=== PATIENT | male | born 1950 | race Caucasian/White ===

== ENCOUNTER 2019-04-17 20:21 | Inpatient (IN) ==
[2019-04-17] MEDS ORDERED: ONDANSETRON 4 MG/2 ML VIAL ONE (20:31)
[2019-04-17] MEDS ORDERED: NITROGLYCERIN 2% OINT 1 INCH/GM PACK TOP ONE (20:31)
[2019-04-17] MEDS ORDERED: MORPHINE 4 MG/1 ML VIAL ONE (20:32)
[2019-04-17] MEDS ORDERED: ASPIRIN 325 MG TABLET ONE (20:32)
[2019-04-17] MEDS ORDERED: ENOXAPARIN 30 MG/0.3 ML SYRINGE IV STA (20:33)
[2019-04-17] MEDS ORDERED: MORPHINE 4 MG/1 ML VIAL IV STA (20:33)
[2019-04-17] MEDS ORDERED: ONDANSETRON 4 MG/2 ML VIAL IV STA (20:33)
[2019-04-17] MEDS ORDERED: ASPIRIN 325 MG TABLET PO STA (20:33)
[2019-04-17] MEDS ORDERED: ENOXAPARIN 100 MG/ML SYRINGE SUBCUT STA (20:39)
[2019-04-17] MEDS ORDERED: ENOXAPARIN 80 MG/0.8 ML SYRINGE SUBCUT ONE (20:40)
[2019-04-17] MEDS ORDERED: methylPREDNISolone SOD SUC 125 MG/2 ML VIAL IV STA (20:41)
[2019-04-17] MEDS ORDERED: diphenhydrAMINE 50 MG/1 ML VIAL IV STA (20:41)
[2019-04-17] MEDS ORDERED: FAMOTIDINE 20 MG/2 ML VIAL IV STA (20:41)
[2019-04-17 20:59] LABS: Basophils # 0.1 10*3/uL (0.0-0.2); Basophils % 0.6 % (0.0-0.8); Eosinophils # 0.3 10*3/uL (0.0-0.87); Eosinophils % 2.9 % (0.00-10.9); Hematocrit 39.6 VOL% (42.0-52.0); Hemoglobin 13.6 GM/DL (14.0-18.0); Immature Granulocytes % 0.3 %; Immature Granulocytes Absolute 0.03 #; Lymphocytes % 27.6 % (21.2-54.2); Mean Corpuscular HGB Conc 34.3 GM/DL (32-36); Mean Corpuscular Volume 90.8 FL (87-102); Mean Platelet Volume 9.8 FL (9.6-12.0); Monocytes % 5.6 % (1.7-12.7); Platelet Count 249 T/CUMM (130-400); Red Blood Count 4.36 MC/CUMM (3.8-5.5); Red Cell Distribution Width 13.3 % (9.3-17.3); White Blood Count 10.8 T/CUMM (4-12)
[2019-04-17] MEDS ORDERED: NITROGLYCERIN DRIP 50 MG/250 ML BOTTLE IV SCH (21:00)
[2019-04-17] MEDS ORDERED: fentaNYL 100 MCG/2 ML VIAL ONE (21:05)
[2019-04-17] MEDS ORDERED: MIDAZOLAM 2 MG/2 ML VIAL ONE (21:05)
[2019-04-17 21:10] LABS: PT Patient Result 10.6 SECS (9.6-12.2)
[2019-04-17] MEDS ORDERED: TIROFIBAN 5,000 MCG/100 ML PREMIX IV ONE (21:16)
[2019-04-17 21:18] LABS: Albumin 4.4 G/DL (3.4-5.0); Bilirubin,Total 0.8 MG/DL (0.2-1.0); Calcium 9.4 MG/DL (8.5-10.1); Osmolality,Calculated 279.7 MOS/KG (273-304); Total Protein 9.2 G/DL (6.4-8.3)
[2019-04-17] MEDS ORDERED: HYDROmorphone 2 MG/1 ML VIAL ONE (21:30)
[2019-04-17] MEDS ORDERED: POTASSIUM CHLORIDE RIDER 100 ML IV ONE (21:37)
[2019-04-17] MEDS ORDERED: DEXTROSE 50% 25 GM/50 ML VIAL IV PRN (21:50)
[2019-04-17] MEDS ORDERED: ZALEPLON 5 MG CAPSULE PO PRN (21:50)
[2019-04-17] MEDS ORDERED: ONDANSETRON 4 MG/2 ML VIAL IV PRN (21:50)
[2019-04-17] MEDS ORDERED: GLUCAGON 1 MG VIAL IM PRN (21:50)
[2019-04-17] MEDS ORDERED: CLOPIDOGREL 300 MG TABLET ONE (21:50)
[2019-04-17] MEDS ORDERED: NITROGLYCERIN SL 0.4 MG TABLET SL PRN (21:50)
[2019-04-17] MEDS ORDERED: LIDOCAINE 1% 20 ML VIAL ONE (21:52)
[2019-04-17] MEDS ORDERED: MAGNESIUM HYDROXIDE SUSP 30 ML UDCUP PO PRN (21:56)
[2019-04-17] MEDS ORDERED: ALUMINUM/MAGNES/SIMETH MAX STR 30 ML UDCUP PO PRN (21:56)
[2019-04-17] MEDS ORDERED: SODIUM CHLORIDE 0.9% 1,000 ML IV SCH (22:00)
[2019-04-17] MEDS ORDERED: TIROFIBAN 5,000 MCG/100 ML PREMIX IV SCH ×2 (22:22→22:30)
[2019-04-17] MEDS: EPTIFIBATIDE 20,000 MCG/10 ML VIAL IV SCH ×2 (22:54→22:55)
[2019-04-17 23:07] LABS: Apearance,Urine CLEAR (Clear); Bilirubin,Urine Negative (Negative); Blood, Urine Moderate mg/dL (Negative); Glucose,Urine (UA) 50 mg/dL (Negative); Ketones,Urine Negative (Negative); Nitrite,Urine Negative (Negative); Protein,Urine Negative; RBC,Urine 1 /HPF (0-4); Urine Color Colorless (Yellow); Urine Specific Gravity 1.021 (1.001-1.035); Urine Urobilinogen < 2.0 EU/DL (0.2-1.0); WBC,Urine 1 /HPF (0-6)
[2019-04-17] MEDS: cloNIDine 0.1 MG TABLET PO PRN (23:31)
[2019-04-17] MEDS: ACETAMINOPHEN 325 MG TABLET PO PRN (23:32)
[2019-04-17] MEDS: POTASSIUM CHLORIDE 20 MEQ TABLET PO PRN (23:32)
[2019-04-18] MEDS: cloNIDine 0.1 MG TABLET PO PRN (01:53)
[2019-04-18] MEDS: POTASSIUM CHLORIDE 20 MEQ TABLET PO PRN ×4 (01:53→09:27)
[2019-04-18 03:12] LABS: Basophils % 0.4 % (0.0-0.8); Eosinophils # 0.1 10*3/uL (0.0-0.87); Eosinophils % 0.6 % (0.00-10.9); Hematocrit 41.1 VOL% (42.0-52.0); Hemoglobin 13.6 GM/DL (14.0-18.0); Immature Granulocytes % 0.3 %; Immature Granulocytes Absolute 0.03 #; Lymphocytes # 1.4 10*3/uL (1.4-4.0); Lymphocytes % 14.7 % (21.2-54.2); Mean Corpuscular HGB Conc 33.1 GM/DL (32-36); Mean Corpuscular Volume 94.1 FL (87-102); Mean Platelet Volume 9.6 FL (9.6-12.0); Monocytes % 3.4 % (1.7-12.7); Neutrophils % 80.6 % (38.7-73.9); Platelet Count 185 T/CUMM (130-400); Red Blood Count 4.37 MC/CUMM (3.8-5.5); Red Cell Distribution Width 13.5 % (9.3-17.3); White Blood Count 9.3 T/CUMM (4-12)
[2019-04-18 03:41] LABS: Risk Ratio 3.83; VLDL CHOLESTEROL 46.6 MG/DL
[2019-04-18 04:18] LABS: CKMB % 8.5 %; Calcium 9.7 MG/DL (8.5-10.1)
[2019-04-18 04:20] LABS: Troponin I 34.5 NG/ML (0.00-0.045)
[2019-04-18] MEDS: LEVOTHYROXINE 100 MCG TABLET PO SCH (06:31)
[2019-04-18] MEDS: INSULIN REGULAR 100 UNIT/ML SUBCUT SCH ×4 (08:35→21:29)
[2019-04-18] MEDS ORDERED: PANTOPRAZOLE 40 MG TABLET PO SCH (09:00)
[2019-04-18] MEDS ORDERED: CLOPIDOGREL 75 MG TABLET PO SCH (09:00)
[2019-04-18] MEDS: ASPIRIN 325 MG TABLET PO SCH (09:25)
[2019-04-18] MEDS: DOXAZOSIN 4 MG TABLET PO SCH (09:26)
[2019-04-18] MEDS: ISOSORBIDE MONONITRATE 30 MG TABLET PO SCH (09:26)
[2019-04-18] MEDS: amLODIPine 10 MG TABLET PO SCH (09:26)
[2019-04-18] MEDS: carvediloL 25 MG TABLET PO SCH (09:27)
[2019-04-18] MEDS: LISINOPRIL/HCTZ 20-12.5 MG TABLET PO SCH (09:27)
[2019-04-18] MEDS: PANTOPRAZOLE 40 MG TABLET PO SCH (09:27)
[2019-04-18] MEDS: CLOPIDOGREL 75 MG TABLET PO SCH (09:27)
[2019-04-18] MEDS: ENOXAPARIN 40 MG/0.4 ML SYRINGE SUBCUT SCH (16:57)
[2019-04-18] MEDS: AMITRIPTYLINE 25 MG TABLET PO SCH (20:14)
[2019-04-18] MEDS: OMEGA 3 ACID ETHYL ESTERS 1 GM CAPSULE PO SCH (20:14)
[2019-04-18] MEDS: ATORVASTATIN 20 MG TABLET PO SCH (20:15)
[2019-04-18] MEDS ORDERED: ATORVASTATIN 20 MG TABLET PO SCH ×2 (21:00)
[2019-04-19] MEDS: LEVOTHYROXINE 100 MCG TABLET PO SCH (06:31)
[2019-04-19] MEDS: LISINOPRIL/HCTZ 20-12.5 MG TABLET PO SCH (09:44)
[2019-04-19] MEDS: INSULIN REGULAR 100 UNIT/ML SUBCUT SCH ×4 (09:44→20:34)
[2019-04-19] MEDS: DOXAZOSIN 4 MG TABLET PO SCH (09:44)
[2019-04-19] MEDS: CLOPIDOGREL 75 MG TABLET PO SCH (09:44)
[2019-04-19] MEDS: ISOSORBIDE MONONITRATE 30 MG TABLET PO SCH (09:44)
[2019-04-19] MEDS: amLODIPine 10 MG TABLET PO SCH (09:45)
[2019-04-19] MEDS: carvediloL 25 MG TABLET PO SCH (09:45)
[2019-04-19] MEDS: ASPIRIN 325 MG TABLET PO SCH (09:45)
[2019-04-19] MEDS: PANTOPRAZOLE 40 MG TABLET PO SCH (09:54)
[2019-04-19] MEDS: OMEGA 3 ACID ETHYL ESTERS 1 GM CAPSULE PO SCH ×2 (09:54→20:34)
[2019-04-19] MEDS: ENOXAPARIN 40 MG/0.4 ML SYRINGE SUBCUT SCH (15:47)
[2019-04-19] MEDS: metFORMIN 500 MG TABLET PO SCH (17:42)
[2019-04-19] MEDS: AMITRIPTYLINE 25 MG TABLET PO SCH (20:34)
[2019-04-19] MEDS: ATORVASTATIN 20 MG TABLET PO SCH (20:34)
[2019-04-20] MEDS: LEVOTHYROXINE 100 MCG TABLET PO SCH (05:40)
[2019-04-20 06:17] LABS: Basophils # 0.1 10*3/uL (0.0-0.2); Basophils % 0.7 % (0.0-0.8); Eosinophils # 0.3 10*3/uL (0.0-0.87); Eosinophils % 3.5 % (0.00-10.9); Hematocrit 35.5 VOL% (42.0-52.0); Hemoglobin 11.9 GM/DL (14.0-18.0); Immature Granulocytes % 0.4 %; Immature Granulocytes Absolute 0.03 #; Lymphocytes # 1.6 10*3/uL (1.4-4.0); Lymphocytes % 22.3 % (21.2-54.2); Mean Corpuscular HGB Conc 33.5 GM/DL (32-36); Mean Corpuscular Volume 92.7 FL (87-102); Monocytes % 6.7 % (1.7-12.7); Neutrophils % 66.4 % (38.7-73.9); Platelet Count 170 T/CUMM (130-400); Red Blood Count 3.83 MC/CUMM (3.8-5.5); Red Cell Distribution Width 13.5 % (9.3-17.3); White Blood Count 7.3 T/CUMM (4-12)
[2019-04-20 06:35] LABS: Calcium 9.9 MG/DL (8.5-10.1); Osmolality,Calculated 285.7 MOS/KG (273-304)
[2019-04-20 06:43] LABS: CKMB % 1.8 %
[2019-04-20 06:48] LABS: Troponin I 13.4 NG/ML (0.00-0.045)
[2019-04-20] MEDS ORDERED: POTASSIUM CHLORIDE 20 MEQ TABLET PO ONE (08:03)
[2019-04-20] MEDS: OMEGA 3 ACID ETHYL ESTERS 1 GM CAPSULE PO SCH (08:28)
[2019-04-20] MEDS: amLODIPine 10 MG TABLET PO SCH (08:29)
[2019-04-20] MEDS: DOXAZOSIN 4 MG TABLET PO SCH (08:29)
[2019-04-20] MEDS: ISOSORBIDE MONONITRATE 30 MG TABLET PO SCH (08:29)
[2019-04-20] MEDS: ASPIRIN 325 MG TABLET PO SCH (08:29)
[2019-04-20] MEDS: carvediloL 25 MG TABLET PO SCH (08:29)
[2019-04-20] MEDS: CLOPIDOGREL 75 MG TABLET PO SCH (08:29)
[2019-04-20] MEDS: metFORMIN 500 MG TABLET PO SCH (08:29)
[2019-04-20] MEDS: PANTOPRAZOLE 40 MG TABLET PO SCH (08:29)
[2019-04-20] MEDS: INSULIN REGULAR 100 UNIT/ML SUBCUT SCH ×2 (08:30→12:45)
[2019-04-20] MEDS: LISINOPRIL/HCTZ 20-12.5 MG TABLET PO SCH (08:32)
[2019-04-20] MEDS ORDERED: glipiZIDE 5 MG TABLET PO SCH (10:00)
[2019-04-20] MEDS ORDERED: LOSARTAN 25 MG TABLET PO SCH (10:00)
[2019-04-20 12:25] VITALS: BP 119/63
[2019-04-20] MEDS ORDERED: INFLUENZA VIRUS VACCINE 0.5 ML SYRINGE IM ONE (12:44)
[2019-04-20] MEDS: ACETAMINOPHEN 325 MG TABLET PO PRN (13:05)
[2019-04-20] MEDS ORDERED: POTASSIUM CHLORIDE 20 MEQ TABLET PO SCH (21:00)
[2019-04-21] MEDS ORDERED: POTASSIUM CHLORIDE 20 MEQ TABLET PO SCH (09:00)
== END 2019-04-20 12:55 | disposition home or self-care (01) | DRG 250 ==
LOC: N.ED 20:21 → N.CC 20:50 → N.EDINP 21:28 → N.CC 21:39 → N.TELES 04-18 11:47
PROVIDERS: ADMIT Internal Medicine Cardiovascular Disease; ATTEND Internal Medicine Cardiovascular Disease
PROC: CLCCHCL (ICD-10-PCS; 2019-04-17 21:15)